=== PATIENT | female | born 1940 | race African-American/Black ===

== ENCOUNTER 2018-04-07 15:18 | Observation (INO) ==
[2018-04-07] MEDS ORDERED: Sod Chloride 0.9% Inj 1,000 ML IV.CONT SCH (16:00)
--- NOTE | 2018-04-07 16:10 | ED ---
HPI General Chief Complaint: Neuro Symptoms/Deficit Stated Complaint: balance/weakness xyest Time Seen by Provider: 04/07/18 15:44 Source: patient History of Present Illness HPI Narrative: Patient is a 78-year-old female with history of CVA, hypertension , hyperlipidemia, GERD, presents the emergency room with complaints of generalized weakness. Patient reports that for the past 3 weeks, she has not been feeling well. Patient reports that she has been ataxic and has been feeling off balance. Patient reports that symptoms were worse today as she had trouble buttoning her shirt today. Reports that she was having problems grasping the buttons, ultimately she gave up and put on an easier shirt. Patient reports that she has been feeling progressively ataxic, reports that she cannot lean forward and has been feeling off balance. Patient reports that when she walks, she feels as if she sways from one side to the other. Patient reports that her legs are not moving like they normally do, patient reports concerns for another CVA. Patient reports that she did have a CVA in 2007, she does have left arm weakness which is residual deficit from her prior stroke. Patient denies any chest pain or shortness of breath, denies any nausea or vomiting, denies any fever chills, no other complaints. Onset (ago): week(s) (past 3 weeks) Related Data Home Medications Medication Instructions Recorded Confirmed clonidine HCl 0.05 mg PO BID 04/07/18 04/07/18 levothyroxine 75 mcg PO DAILY 04/07/18 04/07/18 losartan 50 mg PO BID 04/07/18 04/07/18 omeprazole 20 mg PO DAILY 04/07/18 04/07/18 simvastatin 20 mg PO QPM 04/07/18 04/07/18 Allergies Allergy/AdvReac Type Severity Reaction Status Date / Time lisinopril Allergy Intermediate EXTREME Unverified 04/07/18 15:30 DIZZINESS PAIN MEDICATION AdvReac Intermediate Drowsiness Uncoded 04/07/18 15:30 Review of Systems ROS Unobtainable All other systems reviewed negative except as stated in HPI Neurologic Reports abnormal gait, Reports lack of coordination and Reports weakness PMFSH History History Provided By: Patient Medical History Medical History H/O: hysterectomy (Acute) Hypothyroid (Acute) Non Hodgkin's lymphoma (Acute) CVA (cerebral vascular accident) (Acute) GERD (gastroesophageal reflux disease) (Acute) Hyperlipidemia (Acute) Hypertension (Acute) Prediabetes (Acute) Surgical History Surgical History History of colon resection (Acute) Social History Social History Substance History: No History of Abuse Second Hand Smoke Exposure: No Smoking Status: Former smoker Tobacco Type: Cigarettes How Often Do You Have a Drink Containing Alcohol: Never Exam Narrative Exam Narrative: GENERAL: Mild distress SKIN: Focused skin assessment warm/dry. HEAD: Atraumatic. Normocephalic. EYES: Pupils equal and round. No scleral icterus. No injection or drainage. ENT: No nasal bleeding or discharge. Mucous membranes pink and moist. NECK: Trachea midline. No JVD. CARDIOVASCULAR: Regular rate and rhythm. No murmur appreciated. RESPIRATORY: No accessory muscle use. Clear to auscultation. Breath sounds equal bilaterally. GASTROINTESTINAL: Abdomen soft, non-tender, nondistended. Hepatic and splenic margins not palpable. MUSCULOSKELETAL: No obvious deformities. No clubbing. No cyanosis. No edema. NEUROLOGICAL: Awake and alert. Normal speech. Patient with left arm weakness - patient reports weakness at baseline PSYCHIATRIC: Appropriate mood and affect; insight and judgment normal. Course Initial Documented Vital Signs Temperature 99.4 F 04/07/18 15:21 Pulse Rate 81 04/07/18 15:21 Respiratory Rate 16 04/07/18 15:21 Blood Pressure 203/107 H 04/07/18 15:21 Pulse Oximetry 96 04/07/18 15:21 Last Documented Vital Signs Temperature 99.1 F 04/07/18 16:37 Pulse Rate 76 04/07/18 16:37 Respiratory Rate 16 04/07/18 16:37 Blood Pressure 203/103 H 04/07/18 16:37 Pulse Oximetry 96 04/07/18 16:37 NIH Stroke Scale NIHSS Time Completed NIHSS Time Completed: 16:00 NIH Stroke Scale Level of Consciousness: 0-Alert Orientation Questions: 0-Answers both correct Responds to Commands: 0-Both tasks correct Gaze Eye Movement: 0-Horizontal movement WNL Visual Ortega: 0-No visual field defect Facial Movement: 0-Normal Motor Functions Arm LEFT: 0-No drift Motor Functions Arm RIGHT: 0-No drift Motor Functions Leg LEFT: 0-No drift Motor Functions Leg RIGHT: 0-No drift Limb Ataxia: 0-No ataxia Sensory Loss: 1-Mild sensory loss Best Language: 0-Normal Articulation: 0-Normal Extinction or Inattention Sensory: 0-Absent Total: 1 Medical Decision Making GIDEON Attestation GIDEON supervised visit: No MDM Narrative Medical decision making narrative: During the course of the patients emergency department visit, the patients history, examination, and differential diagnosis were reviewed with the patient. The patient was placed on a radiation monitor with oximetry and frequent blood pressure monitoring. The patient had an IV access obtained and blood work sent for analysis. Discussed with patient need for a CVA workup - she is out of the window for TPA as symptoms began 3 weeks ago and is progressively getting worse. Patient does take a baby asa daily - her last dose was last night, she did not take any asa today. The patient was initially provided aspirin as well as labetolol for treatment of her hypertension, she did not take her antihypertensives today Lab Data Lab results reviewed: Yes I reviewed the patient's lab results. Result diagrams: 04/07/18 16:45 04/07/18 16:41 Lab Results 04/07/18 04/07/18 04/07/18 Range/Units 16:38 16:41 16:41 CBC w Diff WBC (4.0-11.0) th/mm3 RBC (4.00-5.30) mil/mm3 Hgb (11.6-15.3) gm/dL Hct (35.0-46.0) % MCV (80.0-100.0) fL MCH (27.0-34.0) pg MCHC (32.0-36.0) % RDW (11.6-17.2) % Plt Count (150-450) th/mm3 MPV (7.0-11.0) fL Neut % (Auto) (16.0-70.0) % Lymph % (Auto) (9.0-44.0) % Robertson % (Auto) (0.0-8.0) % Eos % (Auto) (0.0-4.0) % Baso % (Auto) (0.0-2.0) % Neut # (Auto) (1.8-7.7) th/mm3 Lymph # (Auto) (1.0-4.8) th/mm3 Robertson # (Auto) (0.0-0.9) th/mm3 Eos # (Auto) (0.0-0.4) th/mm3 Baso # (Auto) (0.0-0.2) th/mm3 WBC Differential PT 10.9 (9.8-11.6) sec INR 1.1 Ratio APTT 24.5 (24.3-30.1) sec Sodium 139 (136-145) meq/L Potassium 3.2 L (3.5-5.1) meq/L Chloride 107 (98-107) meq/L Carbon Dioxide 24.1 (21.0-32.0) meq/L Anion Gap 8 (5-15) meq/L BUN 14 (7-18) mg/dL Creatinine 1.30 H (0.50-1.00) mg/dL Estimated GFR 48 L (>89) mL/min POC Glucose 77 (68-110) mg/dl Random Glucose 82 (74-106) mg/dL Calcium 8.8 (8.5-10.1) mg/dL Total Bilirubin 0.3 (0.2-1.0) mg/dL AST 19 (15-37) U/L ALT 11 (10-53) U/L Alkaline Phosphatase 116 (45-117) U/L Total Creatine Kinase 177 (26-192) U/L CK-MB (CK-2) 1.4 (0.5-3.6) ng/mL Troponin I Less than 0.02 L (0.02-0.05) ng/mL Total Protein 8.3 H (6.4-8.2) g/dL Albumin 3.3 L (3.4-5.0) g/dL Urine Color (Yellw/Straw) Urine Clarity (Clear) Urine pH (5.0-8.5) Ur Specific Mobile (1.002-1.035) Urine Protein (Neg-Trace) mg/dL Urine Glucose (UA) (Negative) mg/dL Urine Ketones (Negative) mg/dL Urine Occult Blood (Negative) Urine Nitrate (Negative) Urine Bilirubin (Negative) Urine Urobilinogen (Less than 2) mg/dL Ur Leukocyte Esterase (Negative) Urine WBC (0-5) /hpf Ur Squamous Epith Cells (0-5) /hpf Micro UA Comment Urine Culture Comments 04/07/18 04/07/18 Range/Units 16:45 17:15 CBC w Diff Auto diff final WBC 5.9 (4.0-11.0) th/mm3 RBC 4.01 (4.00-5.30) mil/mm3 Hgb 11.7 (11.6-15.3) gm/dL Hct 35.3 (35.0-46.0) % MCV 88.1 (80.0-100.0) fL MCH 29.1 (27.0-34.0) pg MCHC 33.0 (32.0-36.0) % RDW 14.8 (11.6-17.2) % Plt Count 266 (150-450) th/mm3 MPV 9.5 (7.0-11.0) fL Neut % (Auto) 37.6 (16.0-70.0) % Lymph % (Auto) 48.3 H (9.0-44.0) % Robertson % (Auto) 9.1 H (0.0-8.0) % Eos % (Auto) 1.3 (0.0-4.0) % Baso % (Auto) 3.7 H (0.0-2.0) % Neut # (Auto) 2.2 (1.8-7.7) th/mm3 Lymph # (Auto) 2.9 (1.0-4.8) th/mm3 Robertson # (Auto) 0.5 (0.0-0.9) th/mm3 Eos # (Auto) 0.1 (0.0-0.4) th/mm3 Baso # (Auto) 0.2 (0.0-0.2) th/mm3 WBC Differential . PT (9.8-11.6) sec INR Ratio APTT (24.3-30.1) sec Sodium (136-145) meq/L Potassium (3.5-5.1) meq/L Chloride (98-107) meq/L Carbon Dioxide (21.0-32.0) meq/L Anion Gap (5-15) meq/L BUN (7-18) mg/dL Creatinine (0.50-1.00) mg/dL Estimated GFR (>89) mL/min POC Glucose (68-110) mg/dl Random Glucose (74-106) mg/dL Calcium (8.5-10.1) mg/dL Total Bilirubin (0.2-1.0) mg/dL AST (15-37) U/L ALT (10-53) U/L Alkaline Phosphatase (45-117) U/L Total Creatine Kinase (26-192) U/L CK-MB (CK-2) (0.5-3.6) ng/mL Troponin I (0.02-0.05) ng/mL Total Protein (6.4-8.2) g/dL Albumin (3.4-5.0) g/dL Urine Color Yellow (Yellw/Straw) Urine Clarity Clear (Clear) Urine pH 6.0 (5.0-8.5) Ur Specific Mobile 1.015 (1.002-1.035) Urine Protein 100 H (Neg-Trace) mg/dL Urine Glucose (UA) Negative (Negative) mg/dL Urine Ketones Negative (Negative) mg/dL Urine Occult Blood Negative (Negative) Urine Nitrate Negative (Negative) Urine Bilirubin Negative (Negative) Urine Urobilinogen 0.2 (Less than 2) mg/dL Ur Leukocyte Esterase Negative (Negative) Urine WBC 0-5 (0-5) /hpf Ur Squamous Epith Cells 0-5 (0-5) /hpf Micro UA Comment Culture not ind Urine Culture Comments Culture not ind Imaging Data Attestation: I personally reviewed and interpreted this imaging study as follows : Radiologist's impression: ITS Impressions Chest X-Ray 04/07/18 16:00 CONCLUSION: No acute cardiopulmonary disease. Head CT 04/07/18 16:00 CONCLUSION: No evidence of acute intracranial pathology. Chronic ischemic changes as above. Discharge Plan Discharge Disposition Patient Disposition: 30 Still Patient Physicians Team ED Provider: Yas Nichols Primary Care Provider: Ena Macdonald Rxs /Orders / Referrals /Forms Prescriptions: No Action losartan 50 mg Tablet 50 mg PO BID RF: 0 clonidine HCl 0.1 mg Tablet 0.05 mg PO BID RF: 0 levothyroxine 75 mcg Tablet 75 mcg PO DAILY RF: 0 omeprazole 20 mg Capsule,Delayed Release(Dr/Ec) 20 mg PO DAILY RF: 0 simvastatin 20 mg/5 mL (4 mg/mL) Suspension 20 mg PO QPM RF: 0 Status ED Status: Admitted Observation Patient
--- NOTE | 2018-04-07 16:27 | XR ---
EXAM DATE: 04/07/2018 4:13 PM EDT AGE/SEX: 78 years / Female INDICATIONS: Chest pain. CLINICAL DATA: This is the patient's initial encounter. Patient reports that signs and symptoms have been present for 1 day and indicates a pain score of 6/10. MEDICAL/SURGICAL HISTORY: None. Hysterectomy. COMPARISON: [facility] – [place], CHEST PA & LAT, 06/23/2014. . FINDINGS: A single AP view of the chest demonstrates the lungs to be symmetrically aerated without evidence of mass, infiltrate or effusion. The cardiomediastinal contours are unremarkable. Osseous structures a re intact. CONCLUSION: No acute cardiopulmonary disease. Electronically signed by: Steve Rizvi MD 04/07/2018 4:26 PM EDT
[2018-04-07 17:07] LABS: Chloride 107 meq/L (98-107); Potassium 3.2 meq/L (3.5-5.1); Sodium 139 meq/L (136-145)
[2018-04-07 17:10] LABS: Albumin 3.3 g/dL (3.4-5.0); Calcium 8.8 mg/dL (8.5-10.1)
[2018-04-07 17:11] LABS: Anion Gap 8 meq/L (5-15); Blood Urea Nitrogen 14 mg/dL (7-18); Carbon Dioxide 24.1 meq/L (21.0-32.0); Glucose,Random 82 mg/dL (74-106)
[2018-04-07 17:13] LABS: Activated Partial Thrombo Time 24.5 sec (24.3-30.1); Alanine Aminotransferase 11 U/L (10-53); INR 1.1 Ratio; Prothrombin Time 10.9 sec (9.8-11.6)
[2018-04-07 17:14] LABS: Aspartate Aminotransferase 19 U/L (15-37); Glomerular Filtration Rate 48 mL/min (>89)
[2018-04-07 17:15] LABS: Total Protein 8.3 g/dL (6.4-8.2)
[2018-04-07 17:16] LABS: Alkaline Phosphatase 116 U/L (45-117); Creatine Kinase 177 U/L (26-192)
[2018-04-07 17:29] LABS: Creatine Kinase MB 1.4 ng/mL (0.5-3.6)
[2018-04-07 17:34] LABS: Bilirubin,Urine Negative (Negative); Clarity,Urine Clear (Clear); Color,Urine Yellow (Yellw/Straw); Glucose,Urine (UA) Negative (Negative); Leukocyte Esterase,Urine Negative (Negative); Nitrite,Urine Negative (Negative); Specific Gravity,Urine 1.015 (1.002-1.035); Urobilinogen,Urine 0.2 mg/dL (Less than 2)
[2018-04-07 17:38] LABS: Squamous Epithelial Cell,Urine 0-5 /hpf (0-5); WBC,Urine 0-5 /hpf (0-5)
[2018-04-07 17:41] LABS: Baso # (Auto) 0.2 th/mm3 (0.0-0.2); Baso % (Auto) 3.7 % (0.0-2.0); Eos # (Auto) 0.1 th/mm3 (0.0-0.4); Eos % (Auto) 1.3 % (0.0-4.0); Hematocrit 35.3 % (35.0-46.0); Hemoglobin 11.7 gm/dL (11.6-15.3); Lymph # (Auto) 2.9 th/mm3 (1.0-4.8); Lymph % (Auto) 48.3 % (9.0-44.0); Mean Corpuscular Hemoglobin 29.1 pg (27.0-34.0); Mean Corpuscular Volume 88.1 fL (80.0-100.0); Mean Platelet Volume 9.5 fL (7.0-11.0); Mono # (Auto) 0.5 th/mm3 (0.0-0.9); Mono % (Auto) 9.1 % (0.0-8.0); Neut # (Auto) 2.2 th/mm3 (1.8-7.7); Neut % (Auto) 37.6 % (16.0-70.0); Platelet Count 266 th/mm3 (150-450); Red Blood Count 4.01 mil/mm3 (4.00-5.30); Red Cell Distribution Width 14.8 % (11.6-17.2); White Blood Count 5.9 th/mm3 (4.0-11.0)
[2018-04-07] MEDS ORDERED: Labetalol HCl Inj 100 MG/20 ML Vial IV.PUSH ONE (17:49)
[2018-04-07] MEDS ORDERED: Aspirin 325 MG Tablet PO ONE (17:49)
--- NOTE | 2018-04-07 21:28 | ECG ---
Date Performed: 04/07/2018 Time Performed: 16:43:16 PTAGE: 78 years EKG: Sinus rhythm RIGHT BUNDLE BRANCH BLOCK LEFT POSTERIOR FASCICULAR BLOCK ABNORMAL ECG PREVIOUS TRACING : 08/29/2014 16.45 Compared to previous tracing, R axis and RBBB present DOCTOR: Torsten Sauceda Interpretating Date/Time 04/07/2018 21:27:02
--- NOTE | 2018-04-07 21:37 | MH ---
cc: Rinku Estrada MD DATE OF ADMISSION: 04/07/2018 ADMISSION DIAGNOSES: 1. Unsteady gait. 2. Generalized weakness. 3. History of prior stroke with residual weakness in the left upper extremity. 4. Hypertension. 5. Hyperlipidemia. 6. Hypothyroidism. 7. Gastroesophageal reflux disease. 8. Carotid artery stenosis with prior right-sided carotid endarterectomy in 2007. 9. Atherosclerosis of the aorta. 10. Stage III chronic kidney disease. 11. History of non-Hodgkin's lymphoma in the . PERTINENT HISTORY: This is a 78-year-old black female with history of prior CVA, hypertension, hyperlipidemia, hypothyroidism that comes in with generalized weakness in the last 2 to 3 weeks and trouble with her gait as well in the last 2 to 3 weeks. Her gait has been slightly ataxic, according to her, and it has been worse in the last 1 to 2 days. She denies any headache. No actual true vertigo, which she has had in the past. No true dizziness. She denies any double vision. She has decreased vision in her right eye secondary to a corneal injury several years ago. She denies any nausea, vomiting, double vision. She has no chest pain, heart palpitations or shortness of breath. She has had no increased swallowing difficulty, but did have prior esophageal dilation in January of this year. She denies any slurring of her speech or trouble saying her words. She has not been noted to have any increased confusion or mental status change. In the ER, blood pressure was elevated; however, she had not taken her blood pressure medication today. Her CT brain scan shows no acute process. I should also mention that about 3 weeks ago she states that she did hit her head, but she could not specify whether she actually lost consciousness or not. As mentioned, she had not complained of any headache. She is admitted for further evaluation of her gait disorder associated with just her generalized weakness. PAST MEDICAL HISTORY: She has hypertension, hypothyroidism, hyperlipidemia, gastroesophageal reflux disease. She had a left CVA in 2007 with just residual weakness in the left upper extremity. She has hypothyroidism. The last TSH level that I saw on her EHR was back in June and it was high at 8.66. She was treated for non-Hodgkin's lymphoma in 1995. She has been noted to have atherosclerosis of her aorta, aortic ectasia and a tortuous aorta on prior imaging. She has osteopenia and vitamin D deficiency. She denies any history of heart attack, angina, CHF, diabetes, liver disease. No seizures. PAST SURGICAL HISTORY: She has had a right carotid endarterectomy in 2007, vaginal hysterectomy for fibroid tumor at age 35. She had a laparoscopy around 2013, when she had some sort of bowel obstruction. 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 It was dilated. She had some esophagitis, gastritis and hiatal hernia. ALLERGIES: SHE IS ALLERGIC TO LISINOPRIL WHICH CAUSED DIZZINESS. SHE HAS PROBLEM WITH TRIAMTERENE HCTZ. HAD SOME UNSPECIFIED PROBLEM WITH NIFEDIPINE AND AMLODIPINE. MEDICATIONS: 1. Baby aspirin 81 mg a day. 2. Simvastatin 20 mg a day. 3. Clonidine 0.1 mg half a tablet twice a day. 4. Levothyroxine 75 mcg daily. 5. Losartan 50 mg twice a day. 6. Omeprazole 20 mg a day. 7. Vitamin D3 1000 units 3 a day. FAMILY HISTORY: Father at 89 of questionable cause. He did have prior colon cancer. Had a brother with colon cancer. Mother at 94 of natural causes. She had an amputation of the distal extremity from an infection. Had a sister with diabetes, a brother with coronary artery disease. SOCIAL HISTORY: She is . She does not use alcohol. She quit smoking at age 35, smoked 1/2 a pack to 1 pack a day for about 15 years. She has some grandchildren that are in their 20s who live with her. She does not use alcohol. REVIEW OF SYSTEMS: GENERAL: No fever, chills, or sweats. HEENT: No hearing complaints. No ear pain, no nasal symptoms. No sore throat. She has dentures. She has decreased vision in her right eye as mentioned due to opacity over the cornea. CARDIOVASCULAR: No chest pain, orthopnea, PND. No palpitations or flutters. No increased swelling in her feet. PULMONARY: No significant cough, hemoptysis, wheezing or shortness of breath. GASTROINTESTINAL: No nausea or vomiting. She has been a little constipated with a bowel movement about 3 days ago. No diarrhea. No abdominal pain or gas or bloating. No hematemesis or rectal bleeding. GENITOURINARY: She has some slight incontinence and has been wearing a pad recently. No dysuria or hematuria. EXTREMITIES: Without swelling. No calf pain. MUSCULOSKELETAL: Without increased arthritis aches. PSYCHIATRIC: Without any significant anxiety and depression. She does state she worries a lot at times. NEUROLOGIC: As mentioned. SKIN: Without rash. PHYSICAL EXAMINATION: GENERAL: Pleasant, black female in no acute distress. VITAL SIGNS: Her blood pressure varied. It was 183/94. It was higher on admission. Her pulse rate is in the high 70s and regular, respiratory rate 16, pulse oximetry 95. HEENT: TMs clear. The right cornea is opacified. Left pupil is equal and reacts to light. No scleral icterus. Nose negative. Mouth with no teeth. No lesions of the mouth. NECK: Without JVD. No bruits. She has a right carotid endarterectomy scar. LUNGS: Clear. HEART: Regular rate and rhythm. No murmur. ABDOMEN: Soft, nontender. No masses. No organomegaly. EXTREMITIES: Good pulses in both feet. No edema. No calf tenderness. SKIN: Without rash. NEUROLOGIC: She is oriented x3. 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 Right side is good. She seems to have maybe just some slight weakness in the left lower extremity when she lifts her leg against resistance. Cranial nerves are intact other than the decreased vision in the right eye. Gdogor-lt-vida testing is normal. I did not attempt to walk her. IMAGING STUDIES: Chest x-ray showed no acute process. Her CT brain scan showed no acute process as well. LABORATORY DATA: Her white count was 5.9, hemoglobin 11.7, platelets were 266,000. INR was 1.1. Her potassium was a little low at 3.2. Sodium 139, chloride 107, CO2 of 24.1, BUN 14, creatinine 1.3, GFR 48. As mentioned, she does have stage III chronic kidney disease and her previous GFR done as outpatient was 43 with a creatinine of 1.21. Her CK is normal. Alkaline phosphatase, AST and ALT, bilirubin and calcium were normal. Glucose was 82. Troponin was less than 0.02. Total protein 8.3, albumin 3.3. Urinalysis just showed some slight urine protein measured at 100, specific gravity 1.015. ASSESSMENT: Noted. PLAN: We talked with Dr. Villegas. He recommended starting the patient on a full aspirin 325 mg a day and also put her on Plavix. She will be maintained on bed rest. Neuro checks will be performed. We will order MRI of the brain with MRA. We will order an MRA of the neck, 2-Dimensional echocardiogram. She will be maintained on her losartan and clonidine. She is already on a statin drug, which will be continued. We changed her omeprazole to Pepcid, since she is going to be on Plavix. She is right now admitted under observation. We ordered sequential compression devices and compression stockings for deep vein thrombosis prophylaxis. She will have a swallowing eval and then, if that is negative, she can be put on a diet. I will order a TSH level to recheck her thyroid function. MD JENNIFER Roa/ , 09:01 PM , 09:36 PM
--- NOTE | 2018-04-07 22:28 | MR ---
EXAM DATE: 04/07/2018 10:20 PM EDT AGE/SEX: 78 years / Female INDICATIONS: CVA. Lower leg weakness with left sided vision change that started one week ago. CLINICAL DATA: This is the patient's initial encounter. Patient reports that signs and symptoms have been present for 1 week and indicates a pain score of 4/10. MEDICAL/SURGICAL HISTORY: Hypertension. Prior stroke in 2007, Non hodgkin's lymphoma cancer in 1995. Colon resection. Sx for lymphoma cancer, Sx for uterine fibroids. COMPARISON: CT of the brain 04/07/2018. TECHNIQUE: Multiplanar, multisequence examination of the brain was performed without contrast. FINDINGS: Extensive periventricular high FLAIR signal abnormality which is confluent nature involving both cere bral hemispheres. High FLAIR signal abnormality involving the central portion of the nataliia. There is a small focus of restricted diffusion involving the central portion of the nataliia just to the right of m idline. This shows reduced signal on the ADC map. No hemorrhage. No mass. Ventricles are normal in si ze. Orbital structures and paranasal sinuses are normal. CONCLUSION: 1. Acute lacunar infarction involving the central portion of the nataliia to the right of midline. 2. Extensive chronic small vessel ischemic change. Electronically signed by: Stephen King MD 04/07/2018 10:27 PM EDT
--- NOTE | 2018-04-07 22:30 | MR ---
EXAM DATE: 04/07/2018 10:20 PM EDT AGE/SEX: 78 years / Female INDICATIONS: CVA. Lower leg weakness with left sided vision change that started one week ago. CLINICAL DATA: This is the patient's initial encounter. Patient reports that signs and symptoms have been present for 1 week and indicates a pain score of 3/10. MEDICAL/SURGICAL HISTORY: Hypertension. Stroke. non hodgkin's lymphoma cancer 1995, Prior stro ke in 2007 Colon resection. Sx uterine fibroids, Sx for Lymphoma cancer. COMPARISON: None. TECHNIQUE: 3D [id number] MRA was performed. Source images, multiplanar STS MIP, and 3D volum e MIP reconstructions were reviewed. FINDINGS: There is excellent visualization of the major intracranial arteries out to the second-order branch ve ssels. There is no evidence for aneurysm, vessel truncation or stenosis, and no evidence for vascula r malformation. CONCLUSION: 1. Negative MRA [place] ([place] [facility] [place]) non contrast. Electronically signed by: Stephen King MD 04/07/2018 10:28 PM EDT
[2018-04-07] MEDS: Sod Chloride 0.9% Inj 1,000 ML IV.CONT SCH (22:50)
[2018-04-07] MEDS: Famotidine 20 MG Tablet PO SCH (22:51)
[2018-04-08] MEDS ORDERED: Levothyroxine 75 MCG Tablet PO SCH (06:00)
[2018-04-08 07:59] LABS: Potassium 3.6 meq/L (3.5-5.1)
[2018-04-08 08:02] LABS: Calcium 8.5 mg/dL (8.5-10.1); Carbon Dioxide 23.3 meq/L (21.0-32.0)
[2018-04-08 08:16] LABS: Thyroid Stimulating Hormone 6.77 uIU/mL (0.358-3.740)
--- NOTE | 2018-04-08 08:32 | MB ---
cc: Nicole Dee MD DATE: 04/08/2018 REASON FOR CONSULTATION: Stroke. HISTORY OF PRESENT ILLNESS: This is a pleasant 78-year-old woman with a history of stroke in the past in 2007, hypertension, hyperlipidemia, reflux, came in with generalized weakness, trouble ambulating for the last month or so , not feeling her usual self, unsteady. Normally she walks, unaided and at this point in time, she has been feeling very off balance. Had some clumsiness today at the day of admission buttoning her shirt, grasping things, may be a little weaker on the left hand on the right. She had a stroke in 2007 that gave her some residual left-sided weakness. PAST MEDICAL HISTORY: Hypothyroidism, non-Hodgkin's lymphoma, stroke, reflux, hyperlipidemia and prediabetic. PAST SURGICAL HISTORY: Hysterectomy, history of left carotid endarterectomy. SOCIAL HISTORY: Does not smoke or drink. She used to smoke cigarettes in the past. PAST SURGICAL HISTORY: She states she does take baby aspirin. PHYSICAL EXAMINATION: VITAL SIGNS: Temperature is 98.3, pulse 81, respiratory rate 18, blood pressure 138/73, saturating at 95 percent on room air. NECK: Supple, no bruits. HEART: Regular. NEUROLOGIC: She is awake and alert. She is fluent. She is oriented. Her pupils are reactive left pupil, right pupil difficult to see. She states she has blurriness chronic in the right eye from some corneal issue. Face is symmetrical. Her tongue is midline. Otherwise, neck is supple. Face symmetrical. Tongue midline. 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 Toes are withdrawing bilaterally. DTRs are trace to 1+. Cerebellar a little slower on the left compared to the right, but no dysmetria. Sensory otherwise normal. Her gait, I will defer to PT for safety reasons. LABORATORY DATA: Reviewed. CBC: White count 5.9, hemoglobin 11.7, platelets 266,000. Coag panel was normal. Potassium this morning is normal at 3.6, chloride 112, glucose 85. Her hemoglobin A1c is pending. Her lipids are pending as are her TSH and T4. Her last creatinine was 1.3 with a GFR of 48, this morning is still pending. URINE: 100 protein, but no culture indicated. IMAGING: MRI of the brain shows an acute lacunar infarct in the central portion of the nataliia to the right of the midline. She has extensive small vessel disease. Chest x-ray: No acute pulmonary disease. MRA [place] did not show any intracranial stenosis. MRA of the carotids is still pending. IMPRESSION: Pontine infarct. RECOMMENDATIONS: At this point in time are to keep her blood pressure normal, but avoiding hypotension. Continue her aspirin. Plavix has been added. I also recommend getting a lipid panel, start her on a statin accordingly. Get an MRA of the carotids, a 2-D echo, have PT work with her, as well as OT. She may need to be in rehab for some period of time, so rehab consult to PM and R. SCDs and subcutaneous heparin. Diet accordingly, cardiac diet. Depending on findings, further recommendations to be made, but if workup is completed, she can go to physical therapy, most likely in the next 24-48 hours. Continue current recommendations. I will keep her on aspirin and Plavix for 3 months and after the 3 months, discontinue the aspirin and continue Plavix. Nicole Dee MD DF/DL , 08:08 AM , 08:30 AM
[2018-04-08] MEDS ORDERED: Pantoprazole Sodium 20 MG DR Tablet PO SCH (09:00)
[2018-04-08] MEDS: Aspirin 325 MG Tablet PO SCH (09:10)
[2018-04-08] MEDS: Famotidine 20 MG Tablet PO SCH ×2 (09:13→21:01)
[2018-04-08 10:13] LABS: Chol/HDL Ratio 2.28 Ratio; HDL Cholesterol 54.7 mg/dL (40.0-60.0)
[2018-04-08 10:27] LABS: Free T4 (Free Thyroxine) 1.26 ng/dL (0.76-1.46)
--- NOTE | 2018-04-08 11:34 | ECHRPT ---
Indication: CVA/TIA CONCLUSIONS Normal left ventricular size. Mild concentric left ventricular hypertrophy. The left ventricular systolic function is normal with an estimated ejection fraction in the range of 55-60%. Mild mitral valve regurgitation. There is mild tricuspid valve regurgitation. The estimated pulmonary arterial pressure is 41 mmHg. BP: / HR: Rhythm: Sinus MEASUREMENTS (Male / Female) Normal Values Technical Quality:Fair 2D ECHO LV Diastolic Diameter PLAX 3.7 cm 4.2 - 5.9 / 3.9 - 5.3 cm LV Systolic Diameter PLAX 2.8 cm IVS Diastolic Thickness 1.1 cm 0.6 - 1.0 / 0.6 - 0.9 cm LVPW Diastolic Thickness 1.1 cm 0.6 - 1.0 / 0.6 - 0.9 cm LV Relative Wall Thickness 0.6 RV Internal Dim ED PLAX 2.8 cm LVOT Diameter 1.9 cm Aortic Root Diameter 2.4 cm LA Systolic Diameter LX 2.4 cm 3.0 - 4.0 / 2.7 - 3.8 cm M-MODE AV Cusp Separation MM 1.6 cm DOPPLER AV Peak Velocity 117.0 cm/s AV Peak Gradient 5.5 mmHg AV Mean Gradient 3.0 mmHg AV Velocity Time Integral 21.0 cm LVOT Peak Velocity 62.4 cm/s LVOT Peak Gradient 1.6 mmHg LVOT Velocity Time Integral 13.4 cm AV Area Cont Eq vti 1.8 cm AV Area Cont Eq pk 1.5 cm Mitral E Point Velocity 71.6 cm/s Mitral A Point Velocity 94.3 cm/s Mitral E to A Ratio 0.8 LV E' Lateral Velocity 5.8 cm/s Mitral E to LV E' Lateral Ratio 12.5 LV E' Septal Velocity 4.7 cm/s Mitral E to LV E' Septal Ratio 15.3 TR Peak Velocity 277.0 cm/s TR Peak Gradient 30.7 mmHg Right Atrial Pressure 10.0 mmHg Pulmonary Artery Systolic Pressu 40.7 mmHg Right Ventricular Systolic Press 40.7 mmHg PV Peak Velocity 65.4 cm/s PV Peak Gradient 1.7 mmHg FINDINGS LEFT VENTRICLE Normal left ventricular size. Mild concentric left ventricular hypertrophy. The left ventricular systolic function is normal with an estimated ejection fraction in the range of 55-60%. RIGHT VENTRICLE Normal right ventricular size and systolic function. LEFT ATRIUM The left atrial size is normal. RIGHT ATRIUM The right atrial size is normal. ATRIAL SEPTUM No atrial level shunt is demonstrated by color flow Doppler interrogation. AORTA The aortic root and proximal ascending aorta are normal in size on limited imaging. MITRAL VALVE Mild mitral valve regurgitation. AORTIC VALVE Trileaflet aortic valve. No aortic valve stenosis or regurgitation. TRICUSPID VALVE There is mild tricuspid valve regurgitation. The estimated pulmonary arterial pressure is 40.7 mmHg. PULMONARY VALVE No pulmonary valve regurgitation or stenosis. VESSELS The inferior vena cava was not well visualized. Torsten Sauceda MD, FACC (Electronically Signed) Final Date:08 April 2018 11:33
[2018-04-08 11:50] LABS: Hemoglobin A1c 5.9 % (4.3-6.0)
[2018-04-09] MEDS: Sod Chloride 0.9% Inj 1,000 ML IV.CONT SCH ×3 (05:51→20:31)
[2018-04-09] MEDS: Levothyroxine 88 MCG Tablet PO SCH (06:08)
--- NOTE | 2018-04-09 10:07 | P.PN ---
Subjective Interval history: No new complaints. No chest pain. No shortness of breath. No abdominal pain. She has chronic weakness of the left upper extremity from a prior stroke but no increased weakness. Physical Exam Vital signs: Vital Signs 04/07/18 15:21 04/07/18 16:37 04/07/18 18:53 Temperature 99.4 F 99.1 F Pulse Rate 81 76 82 Respiratory Rate 16 16 16 Blood Pressure 203/107 H 203/103 H 183/94 H Pulse Oximetry 96 96 95 04/07/18 19:00 04/07/18 20:00 04/07/18 20:10 Temperature Pulse Rate 79 77 80 Respiratory Rate 16 16 Blood Pressure 183/94 H 199/102 H Pulse Oximetry 95 94 L 04/07/18 20:55 04/07/18 22:00 04/07/18 23:30 Temperature 98.7 F Pulse Rate 84 83 Respiratory Rate 18 20 Blood Pressure 195/102 H 230/111 H Pulse Oximetry 95 96 95 04/08/18 00:00 04/08/18 04:00 Temperature 98.2 F 98.3 F Pulse Rate 78 81 Respiratory Rate 18 Blood Pressure 176/88 H 138/73 Pulse Oximetry 95 95 Intake & Output 04/07/18 04/08/18 04/08/18 18:59 06:59 18:59 Intake Total 0 / 0 Balance 0 / 0 Weight 65 kg 66 kg Intake: Oral 0 / 0 Other: # Voids 2 # Bowel Movements 1 Weight On Admission 65.3 kg Narrative: Exam: Pleasant black female in no distress. 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 Results - Labs CBC & Chem 7: 04/07/18 16:45 04/07/18 16:41 Laboratory Results - last 24 hr 04/07/18 04/07/18 04/07/18 16:38 16:41 16:41 CBC w Diff WBC RBC Hgb Hct MCV MCH MCHC RDW Plt Count MPV Neut % (Auto) Lymph % (Auto) [place] % (Auto) Eos % (Auto) Baso % (Auto) Neut # (Auto) Lymph # (Auto) [place] # (Auto) Eos # (Auto) Baso # (Auto) WBC Differential PT 10.9 INR 1.1 APTT 24.5 Sodium 139 Potassium 3.2 L Chloride 107 Carbon Dioxide 24.1 Anion Gap 8 BUN 14 Creatinine 1.30 H Estimated GFR 48 L POC Glucose 77 Random Glucose 82 Calcium 8.8 Total Bilirubin 0.3 AST 19 ALT 11 Alkaline Phosphatase 116 Total Creatine Kinase 177 CK-MB (CK-2) 1.4 Troponin I Less than 0.02 L Total Protein 8.3 H Albumin 3.3 L Urine Color Urine Clarity Urine pH Ur Specific [place] Urine Protein Urine Glucose (UA) Urine Ketones Urine Occult Blood Urine Nitrate Urine Bilirubin Urine Urobilinogen Ur Leukocyte Esterase Urine WBC Ur Squamous Epith Cells Micro UA Comment Urine Culture Comments 04/07/18 04/07/18 16:45 17:15 CBC w Diff Auto diff final WBC 5.9 RBC 4.01 Hgb 11.7 Hct 35.3 MCV 88.1 MCH 29.1 MCHC 33.0 RDW 14.8 Plt Count 266 MPV 9.5 Neut % (Auto) 37.6 Lymph % (Auto) 48.3 H [place] % (Auto) 9.1 H Eos % (Auto) 1.3 Baso % (Auto) 3.7 H Neut # (Auto) 2.2 Lymph # (Auto) 2.9 [place] # (Auto) 0.5 Eos # (Auto) 0.1 Baso # (Auto) 0.2 WBC Differential . PT INR APTT Sodium Potassium Chloride Carbon Dioxide Anion Gap BUN Creatinine Estimated GFR POC Glucose Random Glucose Calcium Total Bilirubin AST ALT Alkaline Phosphatase Total Creatine Kinase CK-MB (CK-2) Troponin I Total Protein Albumin Urine Color Yellow Urine Clarity Clear Urine pH 6.0 Ur Specific [place] 1.015 Urine Protein 100 H Urine Glucose (UA) Negative Urine Ketones Negative Urine Occult Blood Negative Urine Nitrate Negative Urine Bilirubin Negative Urine Urobilinogen 0.2 Ur Leukocyte Esterase Negative Urine WBC 0-5 Ur Squamous Epith Cells 0-5 Micro UA Comment Culture not ind Urine Culture Comments Culture not ind - Imaging Impressions Head MRI 04/07/18 00:00 CONCLUSION: 1. Acute lacunar infarction involving the central portion of the nataliia to the right of midline. 2. Extensive chronic small vessel ischemic change. Head MRA 04/07/18 00:00 CONCLUSION: 1. Negative MRA [place] ([place]) non contrast. Chest X-Ray 04/07/18 16:00 CONCLUSION: No acute cardiopulmonary disease. Head CT 04/07/18 16:00 CONCLUSION: No evidence of acute intracranial pathology. Chronic ischemic changes as above. Assessment and Plan - Assessment (1) Right pontine CVA Code(s): I63.50 - Cerebral infarction due to unspecified occlusion or stenosis of unspecified cerebral artery Status: Acute (2) Unsteady gait Code(s): R26.81 - Unsteadiness on feet Status: Acute (3) Generalized weakness Code(s): R53.1 - Weakness Status: Acute (4) History of stroke with residual deficit Code(s): I69.30 - Unspecified sequelae of cerebral infarction Status: Chronic (5) Hypertension Code(s): I10 - Essential (primary) hypertension Status: Chronic (6) Hyperlipidemia Code(s): E78.5 - Hyperlipidemia, unspecified Status: Chronic (7) Hypothyroidism Code(s): E03.9 - Hypothyroidism, unspecified Status: Chronic (8) GERD (gastroesophageal reflux disease) Code(s): K21.9 - Gastro-esophageal reflux disease without esophagitis Status: Chronic (9) Carotid artery stenosis Code(s): I65.29 - Occlusion and stenosis of unspecified carotid artery Status : Chronic (10) History of right-sided carotid endarterectomy Code(s): Z98.890 - Other specified postprocedural states Status: Chronic (11) Stage 3 chronic kidney disease Code(s): N18.3 - Chronic kidney disease, stage 3 (moderate) Status: Chronic (12) Atherosclerosis of aorta Code(s): I70.0 - Atherosclerosis of aorta Status: Chronic (13) Hx of non-Hodgkin's lymphoma Code(s): Z85.72 - Personal history of non-Hodgkin lymphomas Status: Chronic Plan: Plan: Patient is put on full dose aspirin and Plavix. Patient is currently being seen by neurologist (Dr. Dee) Physical therapy will be consulted. She may need discharge to rehab facility for physical therapy if her gait is significantly off. Continue SCDs for DVT prophylaxis. Continue blood pressure control. 2D echo and MRA of the neck has not been done yet. (5) Hypertension Qualifiers: Hypertension type: unspecified Qualified Code(s): I10 - Essential (primary) hypertension
--- NOTE | 2018-04-09 11:40 | P.DS ---
Date of admission: 04/07/18 19:08 Primary care physician: Ena Liu MD Attending physician on discharge: Rinku Estrada Anticipated date of discharge: 04/09/18 Brief History from admission: This is a 78-year-old white female who presented to the emergency room on 2017 with generalized weakness over the last 2-3 weeks as well as trouble with her walking and gait instability. She had some ataxia issues. She has had prior CVA with residual left arm and hand weakness since 2007. She denied any headache. She had no actual true vertigo or dizziness. She denied any chest pain, shortness of breath, heart palpitation. She is also under treatment for hypertension and her blood pressure was elevated in the ER. She denied any trouble with slurring of her speech or trouble saying her words. She had no confusion or mental status change. A CT brain scan in the ER showed no process. She did mention that she had hit her head about 3 weeks prior but could not say if she lost consciousness or not. She was admitted for further neurological evaluation to see if she had a new stroke and for blood pressure control. I should note also that she has had prior right carotid endarterectomy in 2007. She is on medication for hyperlipidemia, hypothyroidism , gastroesophageal reflux disease. DS: Diagnosis - Discharge Diagnosis (1) Right pontine CVA Status: Acute (2) Unsteady gait Status: Acute (3) Generalized weakness Status: Acute (4) History of stroke with residual deficit Status: Chronic (5) Hypertension Status: Chronic (6) Hyperlipidemia Status: Chronic (7) Hypothyroidism Status: Chronic (8) GERD (gastroesophageal reflux disease) Status: Chronic (9) Carotid artery stenosis Status: Chronic (10) History of right-sided carotid endarterectomy Status: Chronic (11) Stage 3 chronic kidney disease Status: Chronic (12) Atherosclerosis of aorta Status: Chronic (13) Hx of non-Hodgkin's lymphoma Status: Chronic DS: Summary Hospital Course: Hospital course: Patient was admitted for further workup of her neurological symptoms. She had an MRI of the brain that shows a right pontine infarct. An MRA of the head was unremarkable. A CTA of the neck showed no normal vertebral artery flow, a 50-60% stenosis of the right internal carotid artery, and a 30% stenosis of the left internal carotid artery. A 2D echocardiogram showed no significant abnormality. A consult was obtained with with neurology (Dr. Dee}. She was she was put on aspirin 325 mg daily and clopidogrel 75 mg daily for her stroke. She was seen by physical therapy as well as case management. I did increase her home dose of clonidine for blood pressure control. She has been maintained on losartan for blood pressure control as well. She is being discharged to a custodial facility for physical therapy until she is better able to ambulate. I should note that I also increased her home dose of levothyroxine to 88 mcg daily because her TSH was still a little high. Dr. Dee is recommended that she stay on the full dose aspirin 325 mg daily for 3 months along with the clopidogrel. After 3 months the aspirin can be discontinued. She will need a follow-up free T4 and TSH in 6 weeks to check her thyroid levels on her new dose. Her simvastatin was changed to pravastatin while in the hospital and she will be sent to the skilled nursing on pravastatin. A repeat lipid and hepatic panel could be done in 6 weeks also. - Time Spent with Patient Total time spent providing and/or coordinating discharge services: Greater than 30 minutes - Quality: VTE Deep Vein Thrombosis/Pulmonary Embolism Present on Admission: No Exam Vital signs: Vital Signs 04/08/18 12:37 04/08/18 16:57 04/08/18 20:00 Temperature 98.8 F 98.7 F 99.1 F Pulse Rate 86 79 87 Respiratory Rate 18 18 21 Blood Pressure 191/93 H 186/97 H 186/105 H Pulse Oximetry 98 95 94 L 04/08/18 20:54 04/09/18 00:00 04/09/18 04:00 Temperature 98.3 F 98.3 F Pulse Rate 68 81 Respiratory Rate 16 16 Blood Pressure 184/87 H 188/91 H Pulse Oximetry 95 97 95 04/09/18 07:45 04/09/18 08:00 04/09/18 10:29 Temperature 97.6 F Pulse Rate 66 66 Respiratory Rate 20 Blood Pressure 170/82 H Pulse Oximetry 97 97 96 Intake & Output 04/08/18 04/09/18 04/09/18 18:59 06:59 18:59 Intake Total 1000 / 1000 240 / 240 Output Total 400 / 400 Balance 1000 / 1000 -160 / -160 Weight 64.4 kg Intake: IV 1000 / 1000 NS Inj 1,000 ML @ 70 mls/hr IV. 1000 / 1000 CONT .[id number] [facility] Rx#: [id number] Oral 240 / 240 Output: Urine 400 / 400 Other: # Voids 7 # Incontinent Voids 2 Exam: General: Pleasant black female in no acute distress. HEENT: Left pupil is equal, right right cornea is opacified from prior injury, nose without lesions, mouth without teeth and no lesions Neck: There is a right carotid endarterectomy scar, no bruits heard, no JVD Heart: Regular rate and rhythm without murmurs Lungs: Clear to auscultation Abdomen: Soft, nontender, no organomegaly, no masses Extremities: No edema, good palpable pulses in both feet, Skin: No lesions Neuro: Oriented 3, alert, sensory exam negative, finger to nose testing normal , cranial nerves are intact other than the decreased vision of the right eye from prior injury to the eye, motor exam reveals some decreased strength in the left upper extremity and hand at approximately 3/5, she has some minimal weakness when she tries to lift her left leg against resistance compared to the right leg Results Procedures completed during hospitalization: None Completed studies during hospitalization: Laboratory Results - last 48 hr 04/07/18 04/07/18 04/07/18 16:38 16:41 16:41 CBC w Diff WBC RBC Hgb Hct MCV MCH MCHC RDW Plt Count MPV Neut % (Auto) Lymph % (Auto) [place] % (Auto) Eos % (Auto) Baso % (Auto) Neut # (Auto) Lymph # (Auto) [place] # (Auto) Eos # (Auto) Baso # (Auto) WBC Differential PT 10.9 INR 1.1 APTT 24.5 Sodium 139 Potassium 3.2 L Chloride 107 Carbon Dioxide 24.1 Anion Gap 8 BUN 14 Creatinine 1.30 H Estimated GFR 48 L POC Glucose 77 Random Glucose 82 Hemoglobin A1c Calcium 8.8 Total Bilirubin 0.3 AST 19 ALT 11 Alkaline Phosphatase 116 Total Creatine Kinase 177 CK-MB (CK-2) 1.4 Troponin I Less than 0.02 L Total Protein 8.3 H Albumin 3.3 L Triglycerides Cholesterol LDL Cholesterol, Calc HDL Cholesterol Cholesterol/HDL Ratio TSH Free T4 Urine Color Urine Clarity Urine pH Ur Specific [place] Urine Protein Urine Glucose (UA) Urine Ketones Urine Occult Blood Urine Nitrate Urine Bilirubin Urine Urobilinogen Ur Leukocyte Esterase Urine WBC Ur Squamous Epith Cells Micro UA Comment Urine Culture Comments 04/07/18 04/07/18 04/08/18 16:45 17:15 06:33 CBC w Diff Auto diff final WBC 5.9 RBC 4.01 Hgb 11.7 Hct 35.3 MCV 88.1 MCH 29.1 MCHC 33.0 RDW 14.8 Plt Count 266 MPV 9.5 Neut % (Auto) 37.6 Lymph % (Auto) 48.3 H [place] % (Auto) 9.1 H Eos % (Auto) 1.3 Baso % (Auto) 3.7 H Neut # (Auto) 2.2 Lymph # (Auto) 2.9 [place] # (Auto) 0.5 Eos # (Auto) 0.1 Baso # (Auto) 0.2 WBC Differential . PT INR APTT Sodium Potassium Chloride Carbon Dioxide Anion Gap BUN Creatinine Estimated GFR POC Glucose Random Glucose Hemoglobin A1c 5.9 Calcium Total Bilirubin AST ALT Alkaline Phosphatase Total Creatine Kinase CK-MB (CK-2) Troponin I Total Protein Albumin Triglycerides Cholesterol LDL Cholesterol, Calc HDL Cholesterol Cholesterol/HDL Ratio TSH Free T4 Urine Color Yellow Urine Clarity Clear Urine pH 6.0 Ur Specific [place] 1.015 Urine Protein 100 H Urine Glucose (UA) Negative Urine Ketones Negative Urine Occult Blood Negative Urine Nitrate Negative Urine Bilirubin Negative Urine Urobilinogen 0.2 Ur Leukocyte Esterase Negative Urine WBC 0-5 Ur Squamous Epith Cells 0-5 Micro UA Comment Culture not ind Urine Culture Comments Culture not ind 04/08/18 04/08/18 06:33 06:33 CBC w Diff WBC RBC Hgb Hct MCV MCH MCHC RDW Plt Count MPV Neut % (Auto) Lymph % (Auto) [place] % (Auto) Eos % (Auto) Baso % (Auto) Neut # (Auto) Lymph # (Auto) [place] # (Auto) Eos # (Auto) Baso # (Auto) WBC Differential PT INR APTT Sodium 145 Potassium 3.6 Chloride 112 H Carbon Dioxide 23.3 Anion Gap 10 BUN 11 Creatinine 1.10 H Estimated GFR 58 L POC Glucose Random Glucose 85 Hemoglobin A1c Calcium 8.5 Total Bilirubin AST ALT Alkaline Phosphatase Total Creatine Kinase CK-MB (CK-2) Troponin I Total Protein Albumin Triglycerides 98 Cholesterol 125 LDL Cholesterol, Calc 51 HDL Cholesterol 54.7 Cholesterol/HDL Ratio 2.28 TSH 6.770 H Free T4 1.26 Urine Color Urine Clarity Urine pH Ur Specific [place] Urine Protein Urine Glucose (UA) Urine Ketones Urine Occult Blood Urine Nitrate Urine Bilirubin Urine Urobilinogen Ur Leukocyte Esterase Urine WBC Ur Squamous Epith Cells Micro UA Comment Urine Culture Comments Labs on day of discharge: Labs from last 24 hours 04/08/18 06:33 Hemoglobin A1c 5.9 - Impressions ITS Impressions Head MRI 04/07/18 00:00 CONCLUSION: 1. Acute lacunar infarction involving the central portion of the nataliia to the right of midline. 2. Extensive chronic small vessel ischemic change. Head MRA 04/07/18 00:00 CONCLUSION: 1. Negative MRA [place] ([place]) non contrast. Chest X-Ray 04/07/18 16:00 CONCLUSION: No acute cardiopulmonary disease. Head CT 04/07/18 16:00 CONCLUSION: No evidence of acute intracranial pathology. Chronic ischemic changes as above. Neck CTA 04/08/18 12:28 CONCLUSION: There is an approximately 50-60% stenosis proximal right internal carotid artery , status post carotid endarterectomy. Approximately 30% stenosis proximal left internal carotid artery. Vertebral arteries are patent in the neck right side dominant. Discharge Plan - Discharge Disposition Patient Disposition: Discharge to SNF - Discharge Condition Condition: Stable - Discharge Order Discharge Orders: Discharge Order (Routine); Ordered 04/09/18 Ordered By: Rinku Estrada - Discharge Details Anticipated Discharge Date: 04/09/18 Discharge Comment: Discharge to skilled nursing - Physicians Team Primary Care Provider: Ena Macdonald Attending Provider: Rinku Estrada Other Providers: Nicole Dee MD ; [facility]
[2018-04-09] MEDS: Famotidine 20 MG Tablet PO SCH ×2 (13:17→20:24)
[2018-04-09] MEDS: Aspirin 325 MG Tablet PO SCH (13:18)
[2018-04-10] MEDS: Famotidine 20 MG Tablet PO SCH ×2 (02:57→08:03)
[2018-04-10] MEDS: Levothyroxine 88 MCG Tablet PO SCH (05:50)
[2018-04-10] MEDS: Sod Chloride 0.9% Inj 1,000 ML IV.CONT SCH (06:20)
[2018-04-10] MEDS: Aspirin 325 MG Tablet PO SCH (08:02)
--- NOTE | 2018-04-10 08:44 | P.PN ---
Subjective Interval history: Patient's discharge to the senior care has been put off 1 day because a facility was not available yesterday today. The pharmacy messenger hopefully will be able to arrange discharged to long term facility today. Patient has no new complaints. I did do a discharge document yesterday. Physical Exam Vital signs: Vital Signs 04/09/18 09:00 04/09/18 10:29 04/09/18 11:52 Temperature 97.9 F Pulse Rate 84 84 Respiratory Rate 20 Blood Pressure 171/84 H Pulse Oximetry 96 94 L 04/09/18 15:07 04/09/18 20:00 04/10/18 00:00 Temperature 98.8 F 97.4 F L 98.1 F Pulse Rate 97 H 94 H 77 Respiratory Rate 20 20 20 Blood Pressure 170/92 H 226/122 H 166/78 H Pulse Oximetry 96 96 97 04/10/18 04:00 Temperature 97.3 F L Pulse Rate 67 Respiratory Rate 20 Blood Pressure 153/72 H Pulse Oximetry 96 Intake & Output 04/09/18 04/10/18 04/10/18 18:59 06:59 18:59 Intake Total 2079 / 0 2480 / 2480 Balance 2079 / 0 2480 / 2480 Weight 64.5 kg Intake: IV 1000 / 1000 1999 / 1999 NS Inj 1,000 ML @ 70 mls/hr IV. 1000 / 1000 1000 / 1000 CONT .[id number] [facility] Rx#: [id number] Oral 1080 / 1080 480 / 480 Other: # Voids 4 3 Narrative: Exam: Pleasant black female in no distress. 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 Results - Labs CBC & Chem 7: 04/07/18 16:45 04/08/18 06:33 Laboratory Results - last 24 hr 04/10/18 04/10/18 01:08 08:00 POC Glucose 98 93 Laboratory Tests 04/07/18 04/07/18 04/07/18 16:38 16:41 16:41 CBC w Diff WBC RBC Hgb Hct MCV MCH MCHC RDW Plt Count MPV Neut % (Auto) Lymph % (Auto) [place] % (Auto) Eos % (Auto) Baso % (Auto) Neut # (Auto) Lymph # (Auto) [place] # (Auto) Eos # (Auto) Baso # (Auto) WBC Differential PT 10.9 INR 1.1 APTT 24.5 Sodium 139 Potassium 3.2 L Chloride 107 Carbon Dioxide 24.1 Anion Gap 8 BUN 14 Creatinine 1.30 H Estimated GFR 48 L POC Glucose 77 Random Glucose 82 Hemoglobin A1c Calcium 8.8 Total Bilirubin 0.3 AST 19 ALT 11 Alkaline Phosphatase 116 Total Creatine Kinase 177 CK-MB (CK-2) 1.4 Troponin I Less than 0.02 L Total Protein 8.3 H Albumin 3.3 L Triglycerides Cholesterol LDL Cholesterol, Calc HDL Cholesterol Cholesterol/HDL Ratio TSH Free T4 Urine Color Urine Clarity Urine pH Ur Specific [place] Urine Protein Urine Glucose (UA) Urine Ketones Urine Occult Blood Urine Nitrate Urine Bilirubin Urine Urobilinogen Ur Leukocyte Esterase Urine WBC Ur Squamous Epith Cells Micro UA Comment Urine Culture Comments 04/07/18 04/07/18 04/08/18 16:45 17:15 06:33 CBC w Diff Auto diff final WBC 5.9 RBC 4.01 Hgb 11.7 Hct 35.3 MCV 88.1 MCH 29.1 MCHC 33.0 RDW 14.8 Plt Count 266 MPV 9.5 Neut % (Auto) 37.6 Lymph % (Auto) 48.3 H [place] % (Auto) 9.1 H Eos % (Auto) 1.3 Baso % (Auto) 3.7 H Neut # (Auto) 2.2 Lymph # (Auto) 2.9 [place] # (Auto) 0.5 Eos # (Auto) 0.1 Baso # (Auto) 0.2 WBC Differential . PT INR APTT Sodium Potassium Chloride Carbon Dioxide Anion Gap BUN Creatinine Estimated GFR POC Glucose Random Glucose Hemoglobin A1c 5.9 Calcium Total Bilirubin AST ALT Alkaline Phosphatase Total Creatine Kinase CK-MB (CK-2) Troponin I Total Protein Albumin Triglycerides Cholesterol LDL Cholesterol, Calc HDL Cholesterol Cholesterol/HDL Ratio TSH Free T4 Urine Color Yellow Urine Clarity Clear Urine pH 6.0 Ur Specific [place] 1.015 Urine Protein 100 H Urine Glucose (UA) Negative Urine Ketones Negative Urine Occult Blood Negative Urine Nitrate Negative Urine Bilirubin Negative Urine Urobilinogen 0.2 Ur Leukocyte Esterase Negative Urine WBC 0-5 Ur Squamous Epith Cells 0-5 Micro UA Comment Culture not ind Urine Culture Comments Culture not ind 04/08/18 04/08/18 04/10/18 06:33 06:33 01:08 CBC w Diff WBC RBC Hgb Hct MCV MCH MCHC RDW Plt Count MPV Neut % (Auto) Lymph % (Auto) [place] % (Auto) Eos % (Auto) Baso % (Auto) Neut # (Auto) Lymph # (Auto) [place] # (Auto) Eos # (Auto) Baso # (Auto) WBC Differential PT INR APTT Sodium 145 Potassium 3.6 Chloride 112 H Carbon Dioxide 23.3 Anion Gap 10 BUN 11 Creatinine 1.10 H Estimated GFR 58 L POC Glucose 98 Random Glucose 85 Hemoglobin A1c Calcium 8.5 Total Bilirubin AST ALT Alkaline Phosphatase Total Creatine Kinase CK-MB (CK-2) Troponin I Total Protein Albumin Triglycerides 98 Cholesterol 125 LDL Cholesterol, Calc 51 HDL Cholesterol 54.7 Cholesterol/HDL Ratio 2.28 TSH 6.770 H Free T4 1.26 Urine Color Urine Clarity Urine pH Ur Specific [place] Urine Protein Urine Glucose (UA) Urine Ketones Urine Occult Blood Urine Nitrate Urine Bilirubin Urine Urobilinogen Ur Leukocyte Esterase Urine WBC Ur Squamous Epith Cells Micro UA Comment Urine Culture Comments 04/10/18 08:00 CBC w Diff WBC RBC Hgb Hct MCV MCH MCHC RDW Plt Count MPV Neut % (Auto) Lymph % (Auto) [place] % (Auto) Eos % (Auto) Baso % (Auto) Neut # (Auto) Lymph # (Auto) [place] # (Auto) Eos # (Auto) Baso # (Auto) WBC Differential PT INR APTT Sodium Potassium Chloride Carbon Dioxide Anion Gap BUN Creatinine Estimated GFR POC Glucose 93 Random Glucose Hemoglobin A1c Calcium Total Bilirubin AST ALT Alkaline Phosphatase Total Creatine Kinase CK-MB (CK-2) Troponin I Total Protein Albumin Triglycerides Cholesterol LDL Cholesterol, Calc HDL Cholesterol Cholesterol/HDL Ratio TSH Free T4 Urine Color Urine Clarity Urine pH Ur Specific [place] Urine Protein Urine Glucose (UA) Urine Ketones Urine Occult Blood Urine Nitrate Urine Bilirubin Urine Urobilinogen Ur Leukocyte Esterase Urine WBC Ur Squamous Epith Cells Micro UA Comment Urine Culture Comments - Imaging Head MRI 04/07/18 00:00 CONCLUSION: 1. Acute lacunar infarction involving the central portion of the [place] to the right of midline. 2. Extensive chronic small vessel ischemic change. Head MRA 04/07/18 00:00 CONCLUSION: 1. Negative MRA [place] ([place]) non contrast. Chest X-Ray 04/07/18 16:00 CONCLUSION: No acute cardiopulmonary disease. Head CT 04/07/18 16:00 CONCLUSION: No evidence of acute intracranial pathology. Chronic ischemic changes as above. Neck CTA 04/08/18 12:28 CONCLUSION: There is an approximately 50-60% stenosis proximal right internal carotid artery , status post carotid endarterectomy. Approximately 30% stenosis proximal left internal carotid artery. Vertebral arteries are patent in the neck right side dominant. Assessment and Plan - Assessment (1) Right [place]ine CVA Code(s): I63.50 - Cerebral infarction due to unspecified occlusion or stenosis of unspecified cerebral artery Status: Acute (2) Unsteady gait Code(s): R26.81 - Unsteadiness on feet Status: Acute (3) Generalized weakness Code(s): R53.1 - Weakness Status: Acute (4) History of stroke with residual deficit Code(s): I69.30 - Unspecified sequelae of cerebral infarction Status: Chronic (5) Hypertension Code(s): I10 - Essential (primary) hypertension Status: Chronic (6) Hyperlipidemia Code(s): E78.5 - Hyperlipidemia, unspecified Status: Chronic (7) Hypothyroidism Code(s): E03.9 - Hypothyroidism, unspecified Status: Chronic (8) GERD (gastroesophageal reflux disease) Code(s): K21.9 - Gastro-esophageal reflux disease without esophagitis Status: Chronic (9) Carotid artery stenosis Code(s): I65.29 - Occlusion and stenosis of unspecified carotid artery Status : Chronic (10) History of right-sided carotid endarterectomy Code(s): Z98.890 - Other specified postprocedural states Status: Chronic (11) Stage 3 chronic kidney disease Code(s): N18.3 - Chronic kidney disease, stage 3 (moderate) Status: Chronic (12) Atherosclerosis of aorta Code(s): I70.0 - Atherosclerosis of aorta Status: Chronic (13) Hx of non-Hodgkin's lymphoma Code(s): Z85.72 - Personal history of non-Hodgkin lymphomas Status: Chronic - Plan Plan: She will be continued on current medications. I did upper her clonidine dose yesterday evening and her blood pressure is better this morning. We are awaiting case management to get the appropriate discharge facility for her to go to for continued rehab. As stated her discharge paperwork has already been done. (5) Hypertension Qualifiers: Hypertension type: unspecified Qualified Code(s): I10 - Essential (primary) hypertension
[2018-04-10] MEDS ORDERED: Famotidine 20 MG Tablet PO SCH (21:00)
== END 2018-04-10 12:09 ==
LOC: PH3 15:18 → PHEDA 15:18 → PHED 15:18 → PHEDA 21:00 → PH3 22:04
PROVIDERS: ADMIT Family Medicine; ATTEND Family Medicine